=== PATIENT | female | born 1955 ===

== ENCOUNTER 2023-10-11 05:47 | Day surgery (SDC) | payer OTHER ==
[2023-10-11] MEDS ORDERED: DIPHENHYDRAMINE HCL 50 MG/ML VIAL 1ML IV ONE (10:15)
[2023-10-11] MEDS ORDERED: fentaNYL CITRATE 50 MCG/ML AMPUL IV PUSH ONE (10:15)
[2023-10-11] MEDS ORDERED: MIDAZOLAM HCL 2 MG/2 ML VIAL IV ONE (10:15)
== END 2023-10-11 11:55 | disposition home or self-care (01) ==
LOC: AMB-ENDOS 05:47
PROVIDERS: ATTEND Surgery
DX: D12.3 Benign neoplasm of transverse colon (principal); K63.5 Polyp of colon; Z88.6 Allergy status to analgesic agent